=== PATIENT | female | born 1955 | race Caucasian/White ===

== ENCOUNTER → 2025-02-22 | Outpatient (CLI) | payer MEDICARE, BC ==
[~2025-02-22] MED LIST: GADOXETATE DISODIUM 2.5MMOL/10ML VIAL (EOVIST) ONE
== END ==
LOC: M PLAIMG 14:45
PROVIDERS: ATTEND Nurse Practitioner Family
DX: K51.90 Ulcerative colitis, unspecified, without complications (principal)
CPT/HCPCS: 74183; A9581